=== PATIENT | female | born 1995 | race Caucasian/White ===

== ENCOUNTER 2019-03-11 06:03 | Inpatient (IN) | payer BC ==
[~2019-03-11] VITALS: Ht 154.9 cm; Wt 63.0 kg
[2019-03-11] MEDS ORDERED: OXYTOCIN 30U/ 0.9% NaCL 500ML 500 ML IV ONE (06:08)
[2019-03-11] MEDS ORDERED: D5%-LACTATED RINGERS 1,000 ML IV SCH (06:08)
[2019-03-11] MEDS ORDERED: OXYTOCIN 30U/ 0.9% NaCL 500ML 500 ML IV PRN (06:08)
[2019-03-11 06:20] VITALS: BP 123/95
[2019-03-11] MEDS ORDERED: PLEASE ENTER ALLERGIES MC SCH (06:30)
[2019-03-11] MEDS ORDERED: ONDANSETRON 2MG/ML, 2ML IVPush PRN (06:30)
[2019-03-11] MEDS ORDERED: FENTANYL PF 100 MCG/2ML IVPush PRN (06:30)
[2019-03-11] MEDS ORDERED: TERBUTALINE 1 MG/ML, 1ML IVPush PRN (06:30)
[2019-03-11] MEDS ORDERED: FENTANYL PF 100 MCG/2ML IV PRN (06:30)
[2019-03-11 06:40] LABS: BASOPHILS # (AUTO) 0.02 x10^3/uL (0-0.1); BASOPHILS % (AUTO) 0 % (0-1); EOSINOPHILS # (AUTO) 0.09 x10^3/uL (0-0.4); EOSINOPHILS % (AUTO) 1 % (1-7); LYMPHOCYTES # (AUTO) 1.23 x10^3/uL (1-3.4); LYMPHOCYTES % (AUTO) 14 % (22-44); MD NO; MEAN CORPUSCULAR HEMOGLOBIN 29.4 pg (27.0-34.8); MEAN CORPUSCULAR HGB CONC 33.3 g/dL (32.4-35.8); MEAN CORPUSCULAR VOLUME 88.1 fL (80-100); MEAN PLATELET VOLUME 8.7 fL (7.4-10.4); MONOCYTES # (AUTO) 0.49 x10^3/uL (0.2-0.8); MONOCYTES % (AUTO) 6 % (2-9); NEUTROPHILS # (AUTO) 6.98 x10^3/uL (1.8-6.8); NEUTROPHILS % (AUTO) 79 % (42-75); PLATELET COUNT 276 x10^3/uL (130-400); RED BLOOD COUNT 4.55 x10^6/uL (3.82-5.3); RED CELL DISTRIBUTION WIDTH 13.6 % (9.6-15.2)
[2019-03-11] MEDS ORDERED: NEWBORN KIT ONE (06:55)
[2019-03-11] MEDS ORDERED: LIDOCAINE 1%, 20ML ONE (06:55)
[2019-03-11] MEDS ORDERED: MISOPROSTOL 200 MCG TABLET ONE (06:55)
[2019-03-11] MEDS ORDERED: OXYTOCIN 30U/ 0.9% NaCL 500ML 500 ML ONE ×2 (06:55→17:46)
[2019-03-11] MEDS ORDERED: FENTANYL/BUPIV./NS/PF 250 ML EPIDCONT SCH ×2 (07:41→08:14)
[2019-03-11] MEDS: LACTATED RINGERS 1,000 ML IV SCH ×5 (07:41→23:41)
[2019-03-11] MEDS ORDERED: EPHEDRINE 50 MG/ML, 1ML IVPush PRN (08:00)
[2019-03-11] MEDS ORDERED: NALOXONE 0.4 MG/ML, 1ML IVPush PRN (08:00)
[2019-03-11] MEDS ORDERED: LACTATED RINGERS 1,000 ML IVBOLUS PRN ×2 (08:00→08:30)
[2019-03-11] MEDS ORDERED: FENTANYL PF 500 MCG, BUPIVACAINE/PF 0.5%, 30ML 62.5 ML in SODIUM CHLORIDE 0.9% 177.5 ML EPIDCONT SCH (09:00)
[2019-03-11] MEDS ORDERED: BUPIVACAINE 0.25% ONE (09:17)
[2019-03-11] MEDS ORDERED: CALCIUM CARBONATE 500 MG TAB.CHEW ONE (12:07)
[2019-03-11] MEDS ORDERED: CALCIUM CARBONATE 500 MG TAB.CHEW PO PRN (12:30)
[2019-03-11] MEDS ORDERED: ONDANSETRON 2MG/ML, 2ML ONE (12:50)
[2019-03-11] MEDS ORDERED: SODIUM CITRATE/CITRIC ACID 30 ML UDC ONE (12:51)
[2019-03-11] MEDS ORDERED: SODIUM CITRATE/CITRIC ACID 30 ML UDC PO PRN (13:00)
[2019-03-11] MEDS ORDERED: MISOPROSTOL 200 MCG TABLET PR PRN (17:00)
[2019-03-11] MEDS ORDERED: METOCLOPRAMIDE 5 MG/ML, 2ML IV PRN (17:00)
[2019-03-11] MEDS ORDERED: SIMETHICONE 80 MG CHEW TAB PO PRN (17:00)
[2019-03-11] MEDS ORDERED: DOCUSATE 100 MG CAPSULE PO PRN (17:00)
[2019-03-11] MEDS ORDERED: OXYcodone/APAP 5/325MG TABLET PO PRN ×2 (17:00)
[2019-03-11] MEDS ORDERED: ACETAMINOPHEN 325 MG TABLET PO PRN (17:00)
[2019-03-11] MEDS ORDERED: ONDANSETRON 2MG/ML, 2ML IV PRN (17:00)
[2019-03-11] MEDS ORDERED: CARBOPROST TROMETHAMINE 250 MCG/ML, 1ML IM PRN (17:00)
[2019-03-11] MEDS ORDERED: METHYLERGONOVINE 0.2 MG/ML IM PRN (17:00)
[2019-03-11] MEDS ORDERED: IBUPROFEN 800 MG TABLET PO PRN (17:00)
[2019-03-11] MEDS ORDERED: IBUPROFEN 600 MG TABLET ONE (17:20)
[2019-03-11] MEDS: OXYTOCIN 30U/ 0.9% NaCL 500ML 500 ML IV SCH (17:48)
[2019-03-11 20:15] VITALS: BP 127/88
[2019-03-12 00:40] VITALS: BP 135/86
[2019-03-12] MEDS: OXYTOCIN 30U/ 0.9% NaCL 500ML 500 ML IV SCH (02:59)
[2019-03-12 04:00] VITALS: BP 122/79
[2019-03-12 06:32] LABS: BASOPHILS # (AUTO) 0.01 x10^3/uL (0-0.1); BASOPHILS % (AUTO) 0 % (0-1); EOSINOPHILS # (AUTO) 0.22 x10^3/uL (0-0.4); EOSINOPHILS % (AUTO) 2 % (1-7); LYMPHOCYTES # (AUTO) 1.03 x10^3/uL (1-3.4); LYMPHOCYTES % (AUTO) 8 % (22-44); MD NO; MEAN CORPUSCULAR HEMOGLOBIN 29.8 pg (27.0-34.8); MEAN CORPUSCULAR VOLUME 90.3 fL (80-100); MEAN PLATELET VOLUME 8.8 fL (7.4-10.4); MONOCYTES # (AUTO) 0.51 x10^3/uL (0.2-0.8); MONOCYTES % (AUTO) 4 % (2-9); NEUTROPHILS # (AUTO) 11.15 x10^3/uL (1.8-6.8); NEUTROPHILS % (AUTO) 86 % (42-75); PLATELET COUNT 225 x10^3/uL (130-400); RED BLOOD COUNT 3.85 x10^6/uL (3.82-5.3); RED CELL DISTRIBUTION WIDTH 14.4 % (9.6-15.2)
[2019-03-12 07:30] VITALS: BP 125/90
[2019-03-12] MEDS: IBUPROFEN 600 MG TABLET PO PRN ×2 (07:40→13:23)
[2019-03-12] MEDS: LACTATED RINGERS 1,000 ML IV SCH (07:41)
[2019-03-12] MEDS ORDERED: PRENATAL VIT/IRON/FA 1 EACH TABLET PO SCH (09:00)
[2019-03-12] MEDS ORDERED: RHOGAM FROM BLOOD BANK 1 NOTE EA IM/IV ONE (10:00)
[2019-03-12] MEDS ORDERED: IBUP-1222 PO (10:08)
[2019-03-12 12:00] VITALS: BP 111/69
== END 2019-03-12 16:38 | disposition home or self-care (01) | DRG 806 ==
LOC: LDIP 06:03 → 2NW 19:50
PROVIDERS: ADMIT Student in an Organized Health Care Education/Training Program; ATTEND Student in an Organized Health Care Education/Training Program
PROC: 10E0XZZ Delivery of Products of Conception, External Approach (ICD-10-PCS; principal; 2019-03-11)
PROC: 10907ZC Drainage of Amniotic Fluid, Therapeutic from Products of Conception, Via Natural or Artificial Opening (ICD-10-PCS; 2019-03-11)
PROC: 3E033VJ Introduction of Other Hormone into Peripheral Vein, Percutaneous Approach (ICD-10-PCS; 2019-03-11)
PROC: 0HQ9XZZ Repair Perineum Skin, External Approach (ICD-10-PCS; 2019-03-11)
PROC: 10H07YZ Insertion of Other Device into Products of Conception, Via Natural or Artificial Opening (ICD-10-PCS; 2019-03-11)
PROC: 3E0R3BZ Introduction of Anesthetic Agent into Spinal Canal, Percutaneous Approach (ICD-10-PCS; 2019-03-11)
PROC: 00HU33Z Insertion of Infusion Device into Spinal Canal, Percutaneous Approach (ICD-10-PCS; 2019-03-11)
PROC: 3E0234Z Introduction of Serum, Toxoid and Vaccine into Muscle, Percutaneous Approach (ICD-10-PCS; 2019-03-12)
DX: O77.0 Labor and delivery complicated by meconium in amniotic fluid (principal); O99.354 Diseases of the nervous system complicating childbirth; Z37.0 Single live birth; O99.52 Diseases of the respiratory system complicating childbirth; J45.909 Unspecified asthma, uncomplicated; G43.909 Migraine, unspecified, not intractable, without status migrainosus; Z3A.39 39 weeks gestation of pregnancy; Z80.3 Family history of malignant neoplasm of breast; Z88.0 Allergy status to penicillin; O70.0 First degree perineal laceration during delivery; Z23 Encounter for immunization
CPT/HCPCS: 36415; 85025; 85461; 86850; 86900; G0378; J2405; J2790; J3010; J3490; J2590; J7050; J7120

== ENCOUNTER → 2020-10-01 | Outpatient (CLI) | payer BC ==
[~2020-10-01] VITALS: Ht 154.9 cm; Wt 67.0 kg
[~2020-10-01] MED LIST: IBUP-1222 PO
== END | disposition home or self-care (01) ==
LOC: LDOP 19:51
PROVIDERS: ATTEND Student in an Organized Health Care Education/Training Program
DX: O26.893 Other specified pregnancy related conditions, third trimester (principal); R10.9 Unspecified abdominal pain; Z3A.38 38 weeks gestation of pregnancy
CPT/HCPCS: 59025